=== PATIENT | female | born 1985 ===

== ENCOUNTER 2022-11-17 06:05 | Day surgery (SDC) | payer OTHER ==
[~2022-11-17 06:05] MED LIST: SIMVASTA PO; ZETIA10 MG PO
[2022-11-17] MEDS ORDERED: Tylenol #3 PO (08:14)
[2022-11-17] MEDS ORDERED: NAPR500T14 PO (08:14)
== END 2022-11-17 10:50 | disposition home or self-care (01) ==
LOC: CIR.AMB 06:05
PROVIDERS: ATTEND Obstetrics & Gynecology
DX: Z30.2 Encounter for sterilization (principal); Z20.822 Contact with and (suspected) exposure to COVID-19; E78.49 Other hyperlipidemia